=== PATIENT | female | born 2000 | race Caucasian/White ===

== ENCOUNTER 2022-12-13 18:46 | Emergency (ER) | payer BC, SELFPAY ==
--- NOTE | ~2022-12-13 | US_ITS ---
EXAMINATION: US PELVIS LIMITED (BLADDER) CLINICAL INFORMATION: Incomplete bladder emptying. COMPARISON: None available. TECHNIQUE: Real-time imaging of the bladder. Color Doppler exam was used. FINDINGS: BLADDER: Well distended and normal. Bilateral ureteral jets are demonstrated. Prevoid bladder volume is 337 mL. Postvoid bladder volume is 1.3 mL. Other: A thin septation within ovarian cysts in the right ovary measuring 1.9 cm. No further follow-up imaging recommended. Vascular flow in the right ovary. Right ovary measures 3.8 x 2 x 2.7 cm US/US bladder IMPRESSION: Normal ultrasound of the bladder.
--- NOTE | ~2022-12-13 | CT_ITS ---
EXAMINATION: CT ABDOMEN AND PELVIS WITHOUT CONTRAST CLINICAL INFORMATION: Left-sided abdominal pain COMPARISON: None available. TECHNIQUE: Multidetector volumetric imaging was performed from the superior aspect of the liver through the pubic symphysis. Sagittal and coronal reformatted images were obtained on the technologist's workstation. This CT examination was performed using dose optimization techniques as appropriate, variously including the following: *Automated exposure control *Adjustment of mA and/or kV according to patient size (this includes techniques or standardized protocols for targeted exams where dose is matched to indication/reason for exam; i.e. extremities or head) *Use of iterative reconstruction technique DLP: 322 mGy-cm FINDINGS: LUNG BASES: The visualized lung bases are unremarkable. LIVER, GALLBLADDER, AND BILIARY TREE: The liver is normal in size, shape, and attenuation. No focal hepatic lesion or biliary ductal dilatation is present. The gallbladder is unremarkable with no evidence of radiopaque gallstones, gallbladder wall thickening, or obvious pericholecystic inflammatory changes. PANCREAS: Unremarkable. SPLEEN: Unremarkable. ADRENAL GLANDS: Unremarkable. KIDNEYS AND URETERS: The kidneys are normal in size, shape, and attenuation. No hydronephrosis, hydroureter, or calculi seen. No perinephric stranding. BLADDER: Unremarkable. GASTROINTESTINAL TRACT: There is no acute abnormality. There is no bowel wall thickening /edema. There is no bowel obstruction. There is a moderate to large volume of stool in the colon. The appendix is normal . The small bowel loops are unremarkable. The stomach is normal. There is no hiatal hernia. ABDOMINAL WALL: No significant hernia is appreciated. LYMPH NODES: Normal. VASCULAR: Unremarkable. PELVIC VISCERA: Unremarkable. OSSEOUS STRUCTURES: Unremarkable. CT/CT abdomen pelvis wo IV con IMPRESSION: No significant abnormality. Fleischner guidelines were followed.
[2022-12-13 19:18] VITALS: BP 101/66; PULSE 75; RESP 16; TEMP 37.1; O2SAT 99; BMI 20.2
--- NOTE | 2022-12-13 19:20 | ED.GENADULT ---
HPI - General Adult General Chief complaint: Abdominal Pain Stated complaint: lower left side abdominal pain Time Seen by Provider: 12/13/22 20:49 Source: patient, RN notes reviewed and old records reviewed Mode of arrival: ambulatory Limitations: no limitations History of Present Illness HPI narrative: 22-year-old female presents for evaluation of abdominal pain Patient is a type 1 diabetic She reports that she has had left-sided abdominal pain for the last 48 hours. She reports associated nausea without vomiting Denies any constipation or diarrhea Denies any history of abdominal surgeries She reports that she feels ?like when I urinate, I cannot empty my bladder completely. Patient states that her mom had an issue with her bladder a did not let her urinate completely which is concerning for the patient She does not feel like she has a UTI Related Data Allergies Allergy/AdvReac Type Severity Reaction Status Date / Time No Known Allergies Allergy Verified 12/13/22 19:21 Review of Systems Constitutional: Constitutional: Reports as per HPI, Denies chills, Denies fatigue, Denies fever(s) and Denies headache(s) ENT: Denies headache(s) Cardiovascular: Cardiovascular: Denies chest pain and Denies dyspnea Respiratory: Respiratory: Denies cough and Denies dyspnea Gastrointestinal: Gastrointestinal: Reports abdominal pain, Denies constipation, Reports nausea and Denies vomiting Genitourinary: Genitourinary: Denies dysuria and Denies pelvic pain Neurologic: Denies headache(s) and Denies focal weakness Endocrine: Endocrine: Denies fatigue PMFSH Social History Social History Advance Directives: No Advance Directives Information Provided: Yes Physical Exam ED Vital Signs: Vital Signs - 24 hr 12/13/22 19:18 12/13/22 20:24 12/13/22 22:00 Temperature 98.8 F 99.1 F 98.6 F Pulse Rate 75 70 74 Respiratory Rate 16 16 16 Blood Pressure 101/66 108/52 L 93/54 L Pulse Oximetry 99 98 98 Oxygen Delivery Method Room Air Room Air Room Air BMI result Body Mass Index 20.2 Const General: healthy appearing, comfortable, no acute distress, alert and awake Nutritional Appearance: well nourished Orientation/consciousness: patient oriented x3 HENMT Head: Yes normocephalic and Yes atraumatic Eyes Eyelids: Yes eyelids normal Conjunctivae: conjunctivae normal Sclerae: sclerae normal Corneas: corneas normal Pupils: Equal, round and reactive pupils present EOM: EOMs intact bilaterally Neck Neck: Yes full ROM Resp Effort & Inspection: normal respiratory effort, able to speak in complete sentences and not labored GI Inspection: No distended Palpation (GI): Soft to palpation, not firm, Tenderness to palpation present (GI) in the LLQ and in the LUQ; with no rebound tenderness, no guarding and not rigid Auscultation: normoactive bowel sounds Skin General skin exam: no rashes or lesions noted and elasticity normal Neuro General: patient oriented x3 Cranial nerves: Yes Equal, round and reactive pupils present and Yes Bilaterally intact EOM present Cognition (Neuro): normal cognition Extrem Other: Moving all extremities well without any obvious deformities Course Course Course Narrative: This is an RME: Additional HPI, ROS, PE not included below will be deferred to primary provider. 22 year old female presenting from urgent care for concern of appendicitis. Patient has left upper quadrant pain that started two days ago. Patient rates the pain a 2/10 right now. Plan: labs Reevaluation(s) Reevaluation #1: Discussed patient's imaging with her that there are no significant abnormalities. She does have mild stool burden which was also discussed with her. She will be referred to Urology for her feelings of incomplete emptying Time: 23:13 Medical Decision Making Medical Decision Making [facility] Narrative: 22-year-old female with past medical history significant for type 1 diabetes presents for evaluation of abdominal pain. She also reports she feels as though she is incompletely emptying her bladder. Will get an ultrasound of the bladder pre and postvoid. She also has left-sided abdominal tenderness on exam. There is no guarding, no distension. I feel this is most likely related to constipation, less likely diverticulitis or colitis. There is some concern for obstructive uropathy but the patient does not have any blood in her urine. Images pending Differential Diagnosis Differential Diagnoses: The differential diagnosis associated with the presentation includes Constipation Abdominal pain Obstructive uropathy UTI Cystitis Lab Data [facility] Lab Attestation statement: I reviewed the patient's lab results. No significant anemia, a very mild anemia with a hematocrit of 36.6, just below normal. MCV is within normal limits. Electrolytes within normal limits, renal function within normal limits, LFTs including lipase reassuring. Patient is not with a serum hCG is less than 2 12/13/22 19:46 12/13/22 19:46 Labs: Lab Results 12/13/22 12/13/22 12/13/22 Range/Units 19:46 19:46 19:46 WBC 6.0 (4.8-10.8) X10*3/uL RBC 4.00 L (4.20-5.50) X10*6/uL Hgb 12.5 (12.0-16.0) g/dl Hct 36.6 L (37.0-47.0) % MCV 91.5 (80.0-98.0) fL MCH 31.3 (27.0-33.0) pg MCHC 34.2 (31.0-35.0) g/dl RDW 11.8 (11.0-16.0) % Plt Count 268 (160-400) X10*3/uL MPV 9.3 L (9.4-12.3) fL Immature Gran % (Auto) 0.2 (0.0-0.4) % Neut % (Auto) 66.0 (45-73) % Lymph % (Auto) 26.0 (20-40) % [place] % (Auto) 6.5 (2-11) % Eos % (Auto) 0.8 (0-4) % Baso % (Auto) 0.5 (0-2) % Lymph # (Auto) 1.6 (1.2-4.9) X10*3/uL [place] # (Auto) 0.4 (0.1-1.2) X10*3/uL Eos # (Auto) 0.1 (0.0-0.4) X10*3/uL Baso # (Auto) 0.0 (0.0-0.2) X10*3/uL Abs Immat Gran (auto) 0.01 (0.00-0.03) X10*3/uL Absolute Neuts (auto) 3.9 (2.0-8.3) x10*3/uL Absolute Nucleated RBC 0.000 (0.0-0.012) X10*3/uL Nucleated RBC % (auto) 0.0 (0.0-0.2) /100WBC Sodium 138 (135-145) mmol/L Potassium 4.4 (3.3-5.1) mmol/L Chloride 104 (96-108) mmol/L Carbon Dioxide 25 (22-29) mmol/L Anion Gap 13 (12-20) BUN 10 (9-16) mg/dL Creatinine 0.68 (0.5-1.4) mg/dL Estim Creat Clear Calc 88.5 Estimated GFR > 60 Random Glucose 137 H (60-115) mg/dL Calcium 9.9 (8.4-10.2) mg/dL Magnesium 1.8 (1.6-2.6) mg/dL Total Bilirubin 0.6 (0.0-1.0) mg/dL AST 16 (5-31) U/L ALT 10 (0-31) U/L Alkaline Phosphatase 42 (39-117) U/L Total Protein 7.1 (6.5-8.0) g/dL Albumin 4.5 (3.5-5.0) g/dL Lipase 5 L (8-78) U/L Beta HCG, Quant < 2 mIU/mL Urine Color Urine Appearance Urine pH (5.0-9.0) Ur Specific [place] (1.005-1.025) Urine Protein (Neg-Trace) mg/dL Urine Glucose (UA) (Negative) mg/dL Urine Ketones (Negative) mg/dL Urine Blood (Negative) Urine Nitrite (Negative) Ur Leukocyte Esterase (Negative) Urine RBC (0-2) /HPF Urine WBC (0-5) /HPF Ur Squamous Epith Cells (0-2) /HPF Urine Bacteria (None Seen) Hyaline Casts (0-2) /LPF 12/13/22 Range/Units 19:46 WBC (4.8-10.8) X10*3/uL RBC (4.20-5.50) X10*6/uL Hgb (12.0-16.0) g/dl Hct (37.0-47.0) % MCV (80.0-98.0) fL MCH (27.0-33.0) pg MCHC (31.0-35.0) g/dl RDW (11.0-16.0) % Plt Count (160-400) X10*3/uL MPV (9.4-12.3) fL Immature Gran % (Auto) (0.0-0.4) % Neut % (Auto) (45-73) % Lymph % (Auto) (20-40) % [place] % (Auto) (2-11) % Eos % (Auto) (0-4) % Baso % (Auto) (0-2) % Lymph # (Auto) (1.2-4.9) X10*3/uL [place] # (Auto) (0.1-1.2) X10*3/uL Eos # (Auto) (0.0-0.4) X10*3/uL Baso # (Auto) (0.0-0.2) X10*3/uL Abs Immat Gran (auto) (0.00-0.03) X10*3/uL Absolute Neuts (auto) (2.0-8.3) x10*3/uL Absolute Nucleated RBC (0.0-0.012) X10*3/uL Nucleated RBC % (auto) (0.0-0.2) /100WBC Sodium (135-145) mmol/L Potassium (3.3-5.1) mmol/L Chloride (96-108) mmol/L Carbon Dioxide (22-29) mmol/L Anion Gap (12-20) BUN (9-16) mg/dL Creatinine (0.5-1.4) mg/dL Estim Creat Clear Calc Estimated GFR Random Glucose (60-115) mg/dL Calcium (8.4-10.2) mg/dL Magnesium (1.6-2.6) mg/dL Total Bilirubin (0.0-1.0) mg/dL AST (5-31) U/L ALT (0-31) U/L Alkaline Phosphatase (39-117) U/L Total Protein (6.5-8.0) g/dL Albumin (3.5-5.0) g/dL Lipase (8-78) U/L Beta HCG, Quant mIU/mL Urine Color Yellow Urine Appearance Clear Urine pH 7.5 (5.0-9.0) Ur Specific [place] <= 1.005 (1.005-1.025) Urine Protein Negative (Neg-Trace) mg/dL Urine Glucose (UA) Negative (Negative) mg/dL Urine Ketones Negative (Negative) mg/dL Urine Blood Negative (Negative) Urine Nitrite Negative (Negative) Ur Leukocyte Esterase Trace H (Negative) Urine RBC 0-2 (0-2) /HPF Urine WBC 0-5 (0-5) /HPF Ur Squamous Epith Cells 0-2 (0-2) /HPF Urine Bacteria None Seen (None Seen) Hyaline Casts 0-2 (0-2) /LPF Independent Interpretation I performed an independent interpretation of an: CT Scan (Mild stool burden) Radiology Impression Discussion of test interpretation with radiology: I have reviewed the radiologist's reading. (No significant intra-abdominal/pelvic pathology) Radiologist Impression: Bladder ultrasound normal Discharge Plan Discharge Clinical Impression: Abdominal pain Patient Disposition: Home, Self-Care Instructions: Constipation (ED) Additional Instructions: Your workup in the emergency room today was reassuring. Next this includes your blood work, urine sample, CT scan and ultrasound. Your CT scan did appear to show mild constipation. You may try an [id number] laxative or Gas-X Follow-up with urology for your difficulty emptying her bladder. You may follow-up with soledad paz at the number provided Referrals: Ana Tirado MD [Physician] - (Incomplete bladder emptying?)
--- NOTE | 2022-12-13 19:49 | MHC.EDTECH ---
PT URINE SAMPLE COLLECTED AND BLOOD DRAWN AND SENT TO LAB .
[2022-12-13 19:51] LABS: MANUAL DIFF FLAG NO
[2022-12-13 19:53] LABS: Basophils Percent Auto 0.5 % (0-2); Eosinophils Absolute Auto 0.1 X10*3/uL (0.0-0.4); Eosinophils Percent Auto 0.8 % (0-4); Hematocrit 36.6 % (37.0-47.0); Hemoglobin 12.5 g/dl (12.0-16.0); Imm Gran Abs Auto 0.01 X10*3/uL (0.00-0.03); Imm Gran Pct Auto 0.2 % (0.0-0.4); Lymphocytes Absolute Auto 1.6 X10*3/uL (1.2-4.9); Mean Corpuscular HGB Conc 34.2 g/dl (31.0-35.0); Mean Corpuscular Hemoglobin 31.3 pg (27.0-33.0); Mean Corpuscular Volume 91.5 fL (80.0-98.0); Mean Platelet Volume 9.3 fL (9.4-12.3); Monocytes Absolute Auto 0.4 X10*3/uL (0.1-1.2); Monocytes Percent Auto 6.5 % (2-11); Neutrophils Absolute Auto 3.9 x10*3/uL (2.0-8.3); Platelet Count 268 X10*3/uL (160-400); Red Cell Distribution Width 11.8 % (11.0-16.0)
[2022-12-13 19:58] LABS: Appearance Urine Clear; Color Urine Yellow; Glucose Urine UA Negative (Negative); Leukocyte Esterase Urine Trace (Negative); Nitrite Urine Negative (Negative); PH 7.5 (5.0-9.0); Specific Gravity - Urine <= 1.005 (1.005-1.025); UMIC TRIGGER UACC YES; Urine Blood Negative (Negative); Urine Ketones Negative (Negative); Urine Protein Negative (Neg-Trace)
[2022-12-13 20:08] LABS: Alanine Aminotransferase 10 U/L (0-31); Albumin Level 4.5 g/dL (3.5-5.0); Alkaline Phosphatase 42 U/L (39-117); Anion Gap 13 (12-20); Aspartate Amino Transferase 16 U/L (5-31); Bacteria Urine None Seen (None Seen); Bilirubin Total 0.6 mg/dL (0.0-1.0); Blood Urea Nitrogen 10 mg/dL (9-16); Calcium 9.9 mg/dL (8.4-10.2); Carbon Dioxide 25 mmol/L (22-29); Chloride 104 mmol/L (96-108); Creatinine Clr Calc Pharmacy 88.5; Estimated Glomerular Filt Rate > 60; Glucose Random 137 mg/dL (60-115); Hyaline Casts Urine 0-2 /LPF (0-2); Lipase 5 U/L (8-78); Magnesium 1.8 mg/dL (1.6-2.6); Potassium 4.4 mmol/L (3.3-5.1); RBC Urine 0-2 /HPF (0-2); Sodium 138 mmol/L (135-145); Squamous Epithelial Cell Urine 0-2 /HPF (0-2); Total Protein 7.1 g/dL (6.5-8.0); WBC Urine 0-5 /HPF (0-5)
[2022-12-13 20:16] LABS: HCG Quantitative < 2 mIU/mL
[2022-12-13 20:24] VITALS: BP 108/52; PULSE 70; RESP 16; TEMP 37.3; O2SAT 98
--- NOTE | 2022-12-13 20:25 | MHC.EDTECH ---
this pct just assumed care of pt ,vitals sign taken ,warm blanket given ,pt resting quietly in bed .
[2022-12-13 22:00] VITALS: BP 93/54; PULSE 74; RESP 16; TEMP 37; O2SAT 98
== END 2022-12-13 23:20 | disposition home or self-care (01) ==
PROVIDERS: Physician Assistant; Student in an Organized Health Care Education/Training Program; Emergency Provider Emergency Medicine
DX: R10.32 Left lower quadrant pain (principal); E10.9 Type 1 diabetes mellitus without complications; R10.2 Pelvic and perineal pain; R11.0 Nausea; R33.9 Retention of urine, unspecified; Z79.899 Other long term (current) drug therapy
CPT/HCPCS: 36415; 74176; 76857; 80053; 81001; 81003; 83690; 83735; 84702; 85025; 99283; 99284

== ENCOUNTER 2023-07-16 06:33 | Emergency (ER) | payer BC, SELFPAY ==
--- NOTE | ~2023-07-16 | CT_ITS ---
EXAMINATION: CT ABDOMEN AND PELVIS WITH CONTRAST CLINICAL INFORMATION: Severe lower abdominal pain. Bloody diarrhea. COMPARISON: CT abdomen pelvis December 13, 2022 TECHNIQUE: Multidetector volumetric images were obtained from the superior aspect of the liver through the pubic symphysis following administration 85 mL of Omnipaque 350 intravenous contrast. Sagittal and coronal reformatted images were obtained on the technologist's workstation. Today's examination is mildly limited due to motion/respiratory motion artifact. This CT examination was performed using dose optimization techniques as appropriate, variously including the following: *Automated exposure control *Adjustment of mA and/or kV according to patient size (this includes techniques or standardized protocols for targeted exams where dose is matched to indication/reason for exam; i.e. extremities or head) *Use of iterative reconstruction technique DLP: 317 mGy-cm FINDINGS: Visualized lung bases are well aerated. The liver is normal in size. The gallbladder is normal in appearance. The pancreas, spleen and adrenal glands are unremarkable. Symmetrically enhancing kidneys. No hydronephrosis of either kidney. Mild debris-filled stomach. Normal caliber loops of small and large bowel. There is circumferential mucosal thickening centered within the distal descending colon with some minimal adjacent pericolonic stranding, nonspecific. Normal appendix. Normal caliber abdominal aorta. No retroperitoneal lymphadenopathy. The bladder is normal in appearance. Unremarkable CT appearance of the uterus. Trace amount of free pelvic fluid, nonspecific. No inguinal lymphadenopathy. No acute osseous abnormality. CT/CT abdomen pelvis w IV con IMPRESSION: Circumferential mucosal thickening centered within the distal descending colon with some minimal adjacent pericolonic stranding. Findings are nonspecific but most suggestive of colitis, likely infectious or inflammatory. Fleischner guidelines were followed.
[2023-07-16 06:42] VITALS: BP 108/88; PULSE 102; RESP 20; TEMP 36.6; O2SAT 100; BMI 22.5
--- NOTE | 2023-07-16 06:54 | PC.NURSE ---
pt from home, a&ox4, respirations even and unlabored, pt reporting onset of severe abdominal pain with multiple episodes of diarrhea since 2am. pt reports eating large meal prior to diarrhea, pt reports episodes of intermittent nausea. pt reports hx of similar pain. 22G placed in left AC, labs obtained and sent to lab. pt normal sinus on tele 98-99bpm.
[2023-07-16 06:55] LABS: MANUAL DIFF FLAG NO
--- NOTE | 2023-07-16 06:56 | ED.ABDPAIN ---
HPI - Abdominal Pain General Chief Complaint: Abdominal Pain Stated Complaint: abd pain Time Seen by Provider: 07/16/23 06:50 Source: patient Mode of arrival: ambulatory Limitations: no limitations History of Present Illness HPI narrative: 22-year-old female with a history of type 1 diabetes (dx age 11) who presents to the ER for evaluation of acute onset of severe lower abdominal pain that started a few hours ago along with multiple episodes of bloody diarrhea. Patient reports pain came on suddenly around 04:00. She went to the bathroom and had multiple episodes of bloody diarrhea, was unable to get off the toilet for 2.5 hours. She was profusely sweating and having a headache and lightheadedness. She states the pain was an 8 or 9/10, stabbing in nature and across her entire lower abdomen. She denies any chance of , states she just finished her menstrual cycle yesterday. She denies any urinary symptoms. She has been nauseous but has not vomited. She denies any fevers or chills. No known sick contacts. No history of similar presentations. Patient reports she did have a low blood sugar of 30 overnight, drank some juice with resolution. She was symptomatic at the time. She reports a history of severe abdominal cramping prior to her menstrual cycle and was worked up for endometriosis which was negative. MD elicited complaint: abdominal pain Onset (ago): hour(s) Pain Consistency: constant Location: RLQ and LLQ Severity: severe Pain scale (0-10): 9 Quality: cramping and stabbing Radiation: none Migration to: no migration Exacerbating factors: nothing Relieving factors: nothing Associated symptoms: nausea, vomiting and diarrhea Related Data Date of Last Menstrual Period: 07/11/23 Patient : No Previous Rx's Medication Instructions Recorded azithromycin 250 mg tablet See Rx Instructions PO .COMPLEX #6 07/16/23 (Zithromax Z-Justin) tabs ibuprofen 600 mg tablet 600 mg PO Q8H PRN pain #10 tabs 07/16/23 ondansetron 4 mg disintegrating 4 mg PO Q8H PRN nausea and 07/16/23 tablet vomiting #7 tabs oxycodone 5 mg tablet 5 mg PO Q8H PRN severe pain (scale 07/16/23 score 7-10) #5 tabs Allergies Allergy/AdvReac Type Severity Reaction Status Date / Time No Known Allergies Allergy Verified 07/16/23 06:41 Review of Systems Review of Systems Yes all other systems are reviewed and are negative [facility] Past Medical History Date of Last Menstrual Period: 07/11/23 Social History Social History Alcohol intake: current Alcohol intake frequency: a few times a month Smoked in Last 30 Days: No Use of substances other than those prescribed or required for medical reasons: No Advance Directives: No Advance Directives Information Provided: No Patient : No Physical Exam ED Vital Signs: Vital Signs - 24 hr 07/16/23 06:42 07/16/23 10:46 07/16/23 13:25 Temperature 97.9 F 98.3 F Pulse Rate 102 H 81 91 Respiratory Rate 20 16 15 Blood Pressure 108/88 97/64 113/75 Pulse Oximetry 100 99 99 Oxygen Delivery Method Room Air Room Air Room Air BMI result Body Mass Index 22.5 Appearance: Alert. Oriented X3. Patient appears uncomfortable and in pain Head: normocephalic, atraumatic. Eyes: Pupils equal, round and reactive to light. ENT: Pharynx normal. No tonsillar swelling or exudate. Neck: Normal inspection. Neck supple. CVS: Normal heart rate and rhythm. Pulses normal. Respiratory: No respiratory distress. Breath sounds normal. Abdomen: Normal to inspection, tender to palpation throughout the entire lower abdomen with guarding, no rebound. hyperactive bowel sounds Skin: Skin warm and dry. Normal skin color. Normal skin turgor. No rashes. Extremities: No lower extremity edema. No joint swelling. Neuro/psych: Oriented X 3. No motor deficit. No sensory deficit. CN II-XII intact. Normal speech and cognition. Course Reevaluation(s) Reevaluation #1: Pain initially improved after 1st dose of IV morphine however patient is feeling the pain starting to creep back and is getting uncomfortable again. Her vital signs remained stable. Will administer a 2nd dose of morphine and closely monitor her vital signs, respiratory status and pain level. No diarrhea since arrival here. Labs are stable. CT scan is pending. Time: 08:21 Medical Decision Making Medical Decision Making [facility] Narrative: 22 yo type 1 diabetic presents to the ER for evaluation of severe lower abdominal pain associated with bloody diarrhea that started a couple of hours ago. Patient was in significant pain on arrival with lower abdominal tenderness. No urinary symptoms. LMP ended yesterday. IV pain medications, antiemetics and CT scans were ordered for further evaluation. GI panel unable to be obtained, no bowel movements while in the emergency department. Patient's pain was not controlled after 1st dose of IV morphine so she required additional dose of IV pain medication. Her vital signs and mental status remained stable. Pain had improved after this. CT scan was reviewed, showing colitis of the distal sigmoid colon. No leukocytosis. Patient was tolerating oral crackers and dillon taylor in the emergency department. She had some soreness in her abdomen but no recurrent severe pain. She has some recurrent nausea but no vomiting. She was observed for several hours in the ER and would like to try to go home. We discussed empirically treating with antibiotics given there is no stool sample obtained. Differential Diagnosis Differential Diagnoses: The differential diagnosis associated with the presentation includes Viral gastroenteritis, bacterial gastroenteritis, colitis, ischemic colitis Admission/Observation Consideration of admission/observation: Escalation of care including admission/observation considered Lab Data [facility] Lab Attestation statement: I reviewed the patient's lab results. No leukocytosis 07/16/23 06:51 07/16/23 06:51 Labs: Lab Results 07/16/23 07/16/23 Range/Units 06:51 07:53 WBC 7.1 (4.8-10.8) X10*3/uL RBC 4.01 L (4.20-5.50) X10*6/uL Hgb 12.5 (12.0-16.0) g/dl Hct 36.1 L (37.0-47.0) % MCV 90.0 (80.0-98.0) fL MCH 31.2 (27.0-33.0) pg MCHC 34.6 (31.0-35.0) g/dl RDW 11.9 (11.0-16.0) % Plt Count 290 (160-400) X10*3/uL MPV 8.9 L (9.4-12.3) fL Immature Gran % (Auto) 0.4 (0.0-0.4) % Neut % (Auto) 78.8 H (45-73) % Lymph % (Auto) 13.5 L (20-40) % [place] % (Auto) 6.5 (2-11) % Eos % (Auto) 0.4 (0-4) % Baso % (Auto) 0.4 (0-2) % Lymph # (Auto) 1.0 L (1.2-4.9) X10*3/uL [place] # (Auto) 0.5 (0.1-1.2) X10*3/uL Eos # (Auto) 0.0 (0.0-0.4) X10*3/uL Baso # (Auto) 0.0 (0.0-0.2) X10*3/uL Abs Immat Gran (auto) 0.03 (0.00-0.03) X10*3/uL Absolute Neuts (auto) 5.6 (2.0-8.3) x10*3/uL Absolute Nucleated RBC 0.000 (0.0-0.012) X10*3/uL Nucleated RBC % (auto) 0.0 (0.0-0.2) /100WBC Sodium 134 L (135-145) mmol/L Potassium 4.0 (3.3-5.1) mmol/L Chloride 100 (96-108) mmol/L Carbon Dioxide 23 (22-29) mmol/L Anion Gap 15 (12-20) BUN 14 (9-16) mg/dL Creatinine 0.78 (0.5-1.4) mg/dL Estim Creat Clear Calc 77.1 Estimated GFR > 60 Random Glucose 226 H (60-115) mg/dL Calcium 9.3 D (8.4-10.2) mg/dL Total Bilirubin 0.2 (0.0-1.0) mg/dL AST 14 (5-31) U/L ALT 12 (0-31) U/L Alkaline Phosphatase 47 (39-117) U/L Total Protein 7.0 (6.5-8.0) g/dL Albumin 4.3 (3.5-5.0) g/dL Beta HCG, Quant < 2 mIU/mL Urine Color Yellow Urine Appearance Clear Urine pH 6.0 (5.0-9.0) Ur Specific [place] 1.010 (1.005-1.025) Urine Protein Negative (Neg-Trace) mg/dL Urine Glucose (UA) 500 H (Negative) mg/dL Urine Ketones Negative (Negative) mg/dL Urine Blood Negative (Negative) Urine Nitrite Negative (Negative) Ur Leukocyte Esterase Negative (Negative) Independent Interpretation I performed an independent interpretation of an: CT Scan Interpretation: No free air, no evidence of obstruction, no visible abscess, agree with radiologist's read Radiology Impression Discussion of test interpretation with radiology: I have reviewed the radiologist's reading. Radiologist Impression: CT/CT abdomen pelvis w IV con IMPRESSION: Circumferential mucosal thickening centered within the distal descending colon with some minimal adjacent pericolonic stranding. Findings are nonspecific but most suggestive of colitis, likely infectious or inflammatory. Independent Historian Clinical information obtained from an independent historian. History obtained from or confirmed by: Spouse External Record Review External record reviewed: Prior outpatient labs and Prior outpatient radiology Prescription Management I considered prescription management with: Pain Medication and Antibiotic Medications Administered Discontinued Medications Generic Name Dose Route Start Last Admin Trade Name Freq PRN Reason Stop Dose Admin Iohexol 85 ml 07/16/23 08:26 07/16/23 08:27 Iohexol 350 Mg/Ml 100 Ml Infus..Btl IV 07/16/23 08:27 85 ml ONCE ONE Administration Morphine Sulfate 4 mg 07/16/23 07:03 07/16/23 07:15 Morphine Sulfate 4 Mg/Ml Cartridge IVPUSH 07/16/23 07:04 4 mg ONCE ONE Administration Protocol Morphine Sulfate 4 mg 07/16/23 08:14 07/16/23 08:19 Morphine Sulfate 4 Mg/Ml Cartridge IVPUSH 07/16/23 08:15 4 mg ONCE ONE Administration Protocol Ondansetron HCl 4 mg 07/16/23 07:03 07/16/23 07:15 Ondansetron Hcl 4 Mg/2 Ml Vial IVPUSH 07/16/23 07:04 4 mg ONCE ONE Administration Ondansetron HCl 4 mg 07/16/23 13:15 07/16/23 13:30 Ondansetron Hcl 4 Mg/2 Ml Vial IVPUSH 07/16/23 13:16 4 mg ONCE ONE Administration Critical Care Time Critical Care Time Critical Care Time: Yes Total Critical Care Time: 36 Attestation: I have personally provided critical care time exclusive of time spent on separately billable procedures. Time includes review of lab data, radiology results, discussion with consultants, and monitoring for potential decompensation. Intervention performed as documented. Discharge Plan Discharge Clinical Impression: Colitis Patient Disposition: Home, Self-Care Instructions: Colitis (ED) Additional Instructions: Your CT scan showed colitis Take the prescribed medications as directed for this Rest and drink plenty of fluids. Stick to a bland diet for the next 48-72 hours Prescriptions: New azithromycin [Zithromax Z-Justin] 250 mg tablet See Rx Instructions PO .COMPLEX Qty: 6 0RF Rx Instructions: take 500 mg today (day 1), then 250 mg for 4 days (days 2-5) ibuprofen 600 mg tablet 600 mg PO Q8H PRN (Reason: pain) Qty: 10 0RF ondansetron 4 mg tablet,disintegrating 4 mg PO Q8H PRN (Reason: nausea and vomiting) Qty: 7 0RF oxycodone 5 mg tablet 5 mg PO Q8H PRN (Reason: severe pain (scale score 7-10)) Qty: 5 0RF Rx Instructions: Partial Fill upon patient request. Referrals: [facility]Provider Group] (colitis) Tatiana Blank FNP [Primary Care Provider] - Nino Garibay MD [Physician] -
[2023-07-16 06:58] LABS: Basophils Percent Auto 0.4 % (0-2); Eosinophils Percent Auto 0.4 % (0-4); Hematocrit 36.1 % (37.0-47.0); Hemoglobin 12.5 g/dl (12.0-16.0); Imm Gran Abs Auto 0.03 X10*3/uL (0.00-0.03); Imm Gran Pct Auto 0.4 % (0.0-0.4); Lymphocytes Percent Auto 13.5 % (20-40); Mean Corpuscular HGB Conc 34.6 g/dl (31.0-35.0); Mean Corpuscular Hemoglobin 31.2 pg (27.0-33.0); Mean Platelet Volume 8.9 fL (9.4-12.3); Monocytes Absolute Auto 0.5 X10*3/uL (0.1-1.2); Monocytes Percent Auto 6.5 % (2-11); Neutrophils Absolute Auto 5.6 x10*3/uL (2.0-8.3); Neutrophils Percent Auto 78.8 % (45-73); Platelet Count 290 X10*3/uL (160-400); Red Blood Count 4.01 X10*6/uL (4.20-5.50); Red Cell Distribution Width 11.9 % (11.0-16.0); White Blood Count 7.1 X10*3/uL (4.8-10.8)
[2023-07-16] MEDS: Morphine Sulfate 4 MG/ML CARTRIDGE IVPUSH ×2 (07:15→08:19)
[2023-07-16] MEDS: ondansetron HCL 4 MG/2 ML VIAL IVPUSH ×2 (07:15→13:30)
[2023-07-16 07:19] LABS: Alanine Aminotransferase 12 U/L (0-31); Albumin Level 4.3 g/dL (3.5-5.0); Alkaline Phosphatase 47 U/L (39-117); Anion Gap 15 (12-20); Aspartate Amino Transferase 14 U/L (5-31); Bilirubin Total 0.2 mg/dL (0.0-1.0); Blood Urea Nitrogen 14 mg/dL (9-16); Calcium 9.3 mg/dL (8.4-10.2); Carbon Dioxide 23 mmol/L (22-29); Chloride 100 mmol/L (96-108); Creatinine Clr Calc Pharmacy 77.1; Estimated Glomerular Filt Rate > 60; Glucose Random 226 mg/dL (60-115); Sodium 134 mmol/L (135-145)
--- NOTE | 2023-07-16 07:25 | PC.NURSE ---
this RN resumed care of pt at this time. a&ox4. vss and up to date. nsr on the interactive graphic designer. new 20gIV placed in the right AC so CT can be obtained. medication administered per provider order. effectiveness pending. pt aware of urine/stool sample needed so collections can be made/sent to lab. no sob/wob noted. respirations even and unlabored. partner bedside for support. plan of care ongoing. call kennedy placed within reach.
[2023-07-16 07:59] LABS: Appearance Urine Clear; Color Urine Yellow; Glucose Urine UA 500 mg/dL (Negative); Leukocyte Esterase Urine Negative (Negative); Nitrite Urine Negative (Negative); Urine Blood Negative (Negative); Urine Ketones Negative (Negative); Urine Protein Negative (Neg-Trace)
[2023-07-16 08:04] LABS: HCG Quantitative < 2 mIU/mL
--- NOTE | 2023-07-16 08:21 | PC.NURSE ---
pt verbalizing no change in pain level despite medication administration. medication administered per provider order. effectiveness pending. pt to CT at this time. plan of care ongoing.
[2023-07-16] MEDS: iohexoL 350 MG/ML 100 ML INFUS..BTL 85 ML IV (08:27)
[2023-07-16 10:46] VITALS: BP 97/64; PULSE 81; RESP 16; TEMP 36.8; O2SAT 99
[2023-07-16 13:25] VITALS: BP 113/75; PULSE 91; RESP 15; O2SAT 99
--- NOTE | 2023-07-16 13:30 | PC.NURSE ---
pt verbalizing increase in abd pain/nausea - pt medicated per provider order. effectiveness pending.
[2023-07-16 14:55] VITALS: BP 113/75; PULSE 91; RESP 15; TEMP 36.8; O2SAT 99
== END 2023-07-16 15:00 | disposition home or self-care (01) ==
PROVIDERS: Physician Assistant; Emergency Provider Student in an Organized Health Care Education/Training Program; PCP Nurse Practitioner Family
DX: K52.9 Noninfective gastroenteritis and colitis, unspecified (principal); E10.9 Type 1 diabetes mellitus without complications
CPT/HCPCS: 36415; 74177; 80053; 81003; 84702; 85025; 96374; 96375; 96376; 99284; J2270; J2405; Q9967

== ENCOUNTER 2023-07-18 20:44 | Emergency (ER) | payer BC, SELFPAY ==
--- NOTE | ~2023-07-18 | XR_ITS ---
EXAMINATION: XR ABDOMEN KUB CLINICAL INDICATION: Pain. COMPARISON: None available. TECHNIQUE: AP view of the abdomen. FINDINGS: The bowel gas pattern is normal with no evidence of ileus or obstruction. There is retained stool throughout. No unusual soft tissue calcifications are noted. The bones are unremarkable. XR/XR KUB IMPRESSION: Nonobstructive bowel gas pattern. Retained stool throughout.
[2023-07-18 21:05] VITALS: BP 103/63; PULSE 93; RESP 18; TEMP 36.8; O2SAT 98; BMI 20.2
[2023-07-18 21:25] LABS: MANUAL DIFF FLAG NO
[2023-07-18 21:27] LABS: Basophils Percent Auto 0.7 % (0-2); Eosinophils Absolute Auto 0.1 X10*3/uL (0.0-0.4); Eosinophils Percent Auto 1.1 % (0-4); Hemoglobin 12.4 g/dl (12.0-16.0); Imm Gran Abs Auto 0.01 X10*3/uL (0.00-0.03); Imm Gran Pct Auto 0.2 % (0.0-0.4); Lymphocytes Absolute Auto 1.3 X10*3/uL (1.2-4.9); Lymphocytes Percent Auto 28.5 % (20-40); Mean Corpuscular HGB Conc 34.4 g/dl (31.0-35.0); Mean Corpuscular Hemoglobin 31.5 pg (27.0-33.0); Mean Corpuscular Volume 91.4 fL (80.0-98.0); Mean Platelet Volume 8.9 fL (9.4-12.3); Monocytes Absolute Auto 0.4 X10*3/uL (0.1-1.2); Monocytes Percent Auto 7.9 % (2-11); Neutrophils Absolute Auto 2.7 x10*3/uL (2.0-8.3); Neutrophils Percent Auto 61.6 % (45-73); Platelet Count 259 X10*3/uL (160-400); Red Blood Count 3.94 X10*6/uL (4.20-5.50); White Blood Count 4.4 X10*3/uL (4.8-10.8)
[2023-07-18 21:30] LABS: Appearance Urine Clear; Color Urine Yellow; Glucose Urine UA Negative (Negative); Leukocyte Esterase Urine Negative (Negative); Nitrite Urine Negative (Negative); Urine Blood Negative (Negative); Urine Ketones Negative (Negative); Urine Protein Negative (Neg-Trace)
[2023-07-18 21:47] LABS: Alanine Aminotransferase 10 U/L (0-31); Albumin Level 4.4 g/dL (3.5-5.0); Alkaline Phosphatase 43 U/L (39-117); Anion Gap 11 (12-20); Aspartate Amino Transferase 14 U/L (5-31); Bilirubin Total 0.2 mg/dL (0.0-1.0); Blood Urea Nitrogen 12 mg/dL (9-16); Calcium 9.3 mg/dL (8.4-10.2); Carbon Dioxide 30 mmol/L (22-29); Chloride 102 mmol/L (96-108); Creatinine Clr Calc Pharmacy 75.2; Estimated Glomerular Filt Rate > 60; Glucose Random 175 mg/dL (60-115); HCG Quantitative < 2 mIU/mL; Potassium 4.2 mmol/L (3.3-5.1); Sodium 139 mmol/L (135-145)
[2023-07-19 02:01] VITALS: BP 99/67; PULSE 85; RESP 18; TEMP 36.9; O2SAT 99
[2023-07-19 03:54] VITALS: BP 99/63; PULSE 79; RESP 16; TEMP 36.9; O2SAT 98
--- NOTE | 2023-07-19 05:16 | ED.ABDPAIN ---
HPI - Abdominal Pain General Chief Complaint: Abdominal Pain Stated Complaint: colitis Time Seen by Provider: 07/19/23 05:09 Source: patient Mode of arrival: ambulatory Limitations: no limitations History of Present Illness HPI narrative: Patient comes to the emergency room complaining of constipation. Patient states that on July 15, she was diagnosed with colitis. Patient was discharged home. Patient states that she did not take antibiotics because she did not want to start taking antibiotics without a clear diagnosis of what we were treating because she is prone to side effects with antibiotics. Patient states that the diarrhea stopped by itself and now has constipation. Patient complaining of left lower quadrant pain only when she tries to have a bowel movement. Patient denies any recent nausea vomiting or diarrhea. No fever chills. Related Data Previous Rx's Medication Instructions Recorded azithromycin 250 mg tablet See Rx Instructions PO .COMPLEX #6 07/16/23 (Zithromax Z-Justin) tabs ibuprofen 600 mg tablet 600 mg PO Q8H PRN pain #10 tabs 07/16/23 ondansetron 4 mg disintegrating 4 mg PO Q8H PRN nausea and 07/16/23 tablet vomiting #7 tabs oxycodone 5 mg tablet 5 mg PO Q8H PRN severe pain (scale 07/16/23 score 7-10) #5 tabs polyethylene glycol 3350 17 17 g PO BID #119 grams 07/19/23 gram/dose oral powder (Miralax) Allergies Allergy/AdvReac Type Severity Reaction Status Date / Time No Known Allergies Allergy Verified 07/18/23 21:04 Review of Systems Review of Systems Constitutional : No Weight loss, No Fever, No Chills, No Night Sweats, No Fatigue, No Malaise ENT/Mouth : No Hearing loss, No Ear Pain, No Nasal Congestion, No Sinus Pain, No Hoarseness, No sore throat, No Rhinorrhea, No Swallowing Difficulty Eyes: No Eye Pain, No Swelling, No Redness, No Foreign Body, No Discharge, No Vision Changes Cardiovascular : No Chest Pain, No SOB, No Dyspnea on Exertion, No Orthopnea, No Edema, No Palpitations Respiratory : No Cough, No Sputum, No Wheezing, No Smoke Exposure, No Dyspnea Gastrointestinal : No Nausea, No Vomiting, No Diarrhea, complaining of constipation of left lower quadrant pain with abdominal straining Genitourinary : no irregular bleeding, No Dysuria, No Urinary Frequency, No Hematuria, No Urinary Incontinence, No Urgency, No Flank Pain, No Urinary Flow Changes, No Hesitancy Musculoskeletal : No joint pain, No Myalgias, No Joint Swelling Skin : No Skin Lesions, No rash Neuro : No Weakness, No Numbness, No Paresthesias, No Loss of Consciousness, No Dizziness, No Headache Psych : No Anxiety/Panic, No Depression, No SI/HI/AH/VH, No Social Issues, Heme/Lymph: No Bruising, No Bleeding,No Lymphadenopathy Endocrine : No Polyuria, No Polydipsia, No Temperature Intolerance [facility] Social History Social History Alcohol intake: current Alcohol intake frequency: a few times a month Smoked in Last 30 Days: No Advance Directives: No Advance Directives Information Provided: Yes Physical Exam ED Vital Signs: Vital Signs - 24 hr 07/18/23 21:05 07/19/23 02:01 07/19/23 03:54 Temperature 98.2 F 98.4 F 98.5 F Pulse Rate 93 85 79 Respiratory Rate 18 18 16 Blood Pressure 103/63 99/67 99/63 Pulse Oximetry 98 99 98 Oxygen Delivery Method Room Air Room Air Room Air BMI result Body Mass Index 20.2 Const Other: Appearance: Alert. Oriented X3. No acute distress. Well-appearing Eyes: Pupils equal, round and reactive to light. ENT: Pharynx normal. Neck: Normal inspection. Neck supple. No lymph nodes noted. No crepitus CVS: Normal heart rate and rhythm. Pulses normal. Normal S1 and S2 Respiratory: No respiratory distress. Breath sounds normal. No Wheezing. No rales Abdomen: Soft and nontender. No rigidity. No distention. Skin: Skin warm and dry. Normal skin color. Normal skin turgor. Extremities: No lower extremity edema. No Lacerations. No Rash Neuro: Oriented X 3. No motor deficit. No sensory deficit. Moving all extremities. No slurred speech. CN 2 through 12 grossly intact Psych: calm, cooperative, normal affect Medical Decision Making Medical Decision Making MDM Narrative: -my interpretation of labs: White blood cell count 4.4, hematology within normal limits/at baseline. Chemistry no significant electrolyte abnormality, LFTs normal, hCG negative -physical exam is unremarkable, no pain to palpation. -patient states that she is afraid to have a bowel movement because when she strains she gets pain. -KUB pending to see how by the constipation is. -patient states that she has not had any diarrhea at all, at this time, antibiotics no longer recommended. -I reviewed patient's medical records from previous visit, CT scan showed circumferential mucosal thickening centered within the distal descending colon My interpretation KUB: Constipation, no air-fluid levels -patient instructed to take MiraLax Differential Diagnosis Differential Diagnoses: The differential diagnosis associated with the presentation includes (Constipation, colitis) Lab Data MDM Lab Attestation statement: I reviewed the patient's lab results. 07/18/23 21:20 07/18/23 21:20 Labs: Lab Results 07/18/23 Range/Units 21:20 WBC 4.4 L (4.8-10.8) X10*3/uL RBC 3.94 L (4.20-5.50) X10*6/uL Hgb 12.4 (12.0-16.0) g/dl Hct 36.0 L (37.0-47.0) % MCV 91.4 (80.0-98.0) fL MCH 31.5 (27.0-33.0) pg MCHC 34.4 (31.0-35.0) g/dl RDW 12.0 (11.0-16.0) % Plt Count 259 (160-400) X10*3/uL MPV 8.9 L (9.4-12.3) fL Immature Gran % (Auto) 0.2 (0.0-0.4) % Neut % (Auto) 61.6 (45-73) % Lymph % (Auto) 28.5 (20-40) % [place] % (Auto) 7.9 (2-11) % Eos % (Auto) 1.1 (0-4) % Baso % (Auto) 0.7 (0-2) % Lymph # (Auto) 1.3 (1.2-4.9) X10*3/uL [place] # (Auto) 0.4 (0.1-1.2) X10*3/uL Eos # (Auto) 0.1 (0.0-0.4) X10*3/uL Baso # (Auto) 0.0 (0.0-0.2) X10*3/uL Abs Immat Gran (auto) 0.01 (0.00-0.03) X10*3/uL Absolute Neuts (auto) 2.7 (2.0-8.3) x10*3/uL Absolute Nucleated RBC 0.000 (0.0-0.012) X10*3/uL Nucleated RBC % (auto) 0.0 (0.0-0.2) /100WBC Sodium 139 (135-145) mmol/L Potassium 4.2 (3.3-5.1) mmol/L Chloride 102 (96-108) mmol/L Carbon Dioxide 30 H (22-29) mmol/L Anion Gap 11 L (12-20) BUN 12 (9-16) mg/dL Creatinine 0.80 (0.5-1.4) mg/dL Estim Creat Clear Calc 75.2 Estimated GFR > 60 Random Glucose 175 H (60-115) mg/dL Calcium 9.3 (8.4-10.2) mg/dL Total Bilirubin 0.2 (0.0-1.0) mg/dL AST 14 (5-31) U/L ALT 10 (0-31) U/L Alkaline Phosphatase 43 (39-117) U/L Total Protein 7.0 (6.5-8.0) g/dL Albumin 4.4 (3.5-5.0) g/dL Lipase 5 L (8-78) U/L Beta HCG, Quant < 2 mIU/mL Urine Color Yellow Urine Appearance Clear Urine pH 6.0 (5.0-9.0) Ur Specific [place] 1.010 (1.005-1.025) Urine Protein Negative (Neg-Trace) mg/dL Urine Glucose (UA) Negative (Negative) mg/dL Urine Ketones Negative (Negative) mg/dL Urine Blood Negative (Negative) Urine Nitrite Negative (Negative) Ur Leukocyte Esterase Negative (Negative) Independent Interpretation I performed an independent interpretation of an: CT Scan Radiology Impression Discussion of test interpretation with radiology: I have reviewed the radiologist's reading. Radiologist Impression: The bowel gas pattern is normal with no evidence of ileus or obstruction. There is retained stool throughout. No unusual soft tissue calcifications are noted. The bones are unremarkable. XR/XR KUB IMPRESSION: Nonobstructive bowel gas pattern. Retained stool throughout. Discharge Plan Discharge Clinical Impression: Constipation Patient Disposition: Home, Self-Care Instructions: Constipation (ED) Additional Instructions: Please follow-up with your primary care physician tomorrow. If you have any worsening or new symptoms, please return to the emergency room or call 911 Prescriptions: New polyethylene glycol 3350 [Miralax] 17 gram/dose powder 17 g PO BID Qty: 119 0RF No Action azithromycin [Zithromax Z-Justin] 250 mg tablet See Rx Instructions PO .COMPLEX Qty: 6 0RF Rx Instructions: take 500 mg today (day 1), then 250 mg for 4 days (days 2-5) ibuprofen 600 mg tablet 600 mg PO Q8H PRN (Reason: pain) Qty: 10 0RF ondansetron 4 mg tablet,disintegrating 4 mg PO Q8H PRN (Reason: nausea and vomiting) Qty: 7 0RF oxycodone 5 mg tablet 5 mg PO Q8H PRN (Reason: severe pain (scale score 7-10)) Qty: 5 0RF Rx Instructions: Partial Fill upon patient request.
[2023-07-19 05:22] LABS: Lipase 5 U/L (8-78)
[2023-07-19 06:07] VITALS: BP 99/63; PULSE 79; RESP 16; TEMP 36.9; O2SAT 98
== END 2023-07-19 06:11 | disposition home or self-care (01) ==
PROVIDERS: Emergency Provider Emergency Medicine; PCP Nurse Practitioner Family
DX: K59.00 Constipation, unspecified (principal); K52.9 Noninfective gastroenteritis and colitis, unspecified
CPT/HCPCS: 36415; 74018; 80053; 81003; 83690; 84702; 85025; 99283; 99284

== ENCOUNTER 2023-09-25 14:05 | Emergency (ER) | payer BC, SELFPAY ==
[2023-09-25 14:40] VITALS: BP 118/72; PULSE 90; RESP 16; TEMP 36.7; O2SAT 99; BMI 20.2
[2023-09-25 16:00] VITALS: BP 96/90; PULSE 82; TEMP 37; O2SAT 100
--- NOTE | 2023-09-25 17:32 | ED_ITS ---
HPI - Skin/Abscess/Foreign Bdy General Chief complaint: Skin/Abscess/Foreign Body Stated complaint: Facial wounds Time Seen by Provider: 09/25/23 16:36 Source: patient Mode of arrival: ambulatory Limitations: no limitations History of Present Illness HPI narrative: patient a 22-year-old presents to the emergency department for evaluation. Patient provides me with a notebook where she has a list of written concerns to address today. Reports that she has very bad cystic hormonal she is following with Dermatology has recently prescribed tone addition to clindamycin lotion she taking these medications accordingly, but she continues to progression of the scabbed cystic lesions to her face become quite painful. She reports increased pain especially on her chin with talking. She also reports a history autism, OCD, body focused repetitive disorders, dermatillomania, type 1 diabetes with good control of her blood sugars. she reports in the past that she has benefitted from Accutane, but has not taken this in approximately 1-1.5 years as she was unable to continue receiving her oral contraceptives. She states that she was followed by agricultural engineering technician office but has not seen them in approximately 2 years. she reports that she feels like I might want to go inpatient psych , she reports that in the past she has benefitted from inpatient psych admission as this allows time for her skin to heal and she does not pick skin, when asked whether she is experiencing suicidal or homicidal ideations she admits to having chronic intrusive thoughts but denies any worsening of these thoughts. Related Data Home Medications ?Medication ?Instructions ?Recorded ?Confirmed fluoxetine 40 mg capsule 40 mg PO DAILY 09/25/23 09/25/23 insulin glargine 100 unit/mL 15 unit subcut BEDTIME 09/25/23 09/25/23 subcutaneous solution (Lantus U-100 Insulin) Previous Rx's ?Medication ?Instructions ?Recorded doxycycline hyclate 100 mg tablet 100 mg PO BID #14 tabs 09/25/23 Allergies Allergy/AdvReac Type Severity Reaction Status Date / Time insulin lispro Allergy Itching Verified 09/25/23 21:26 Review of Systems 2 Review of Systems: Yes all other systems are reviewed and are negative [facility] Past Medical History Attestation statement: The following information was validated with the patient. Source: old records reviewed Social History Social History Alcohol intake: current Alcohol intake frequency: a few times a month Advance Directives: No Advance Directives Information Provided: No Do you have a plan to hurt others: No Plan Physical Exam 2 Vital Signs: Vital Signs: Last Vital Signs Temp 98.6 F 09/25/23 16:00 Pulse 82 09/25/23 16:00 Resp 16 09/25/23 14:40 BP 96/90 H 09/25/23 16:00 Pulse Ox 100 09/25/23 16:00 O2 Del Method Room Air 09/25/23 16:00 BMI result Body Mass Index 20.2 Appearance: Alert.?Oriented to person, place and time. No acute distress.?Normal affect. Neck: Normal inspection.? Neck supple.?? CVS: Heart sounds normal. Normal heart rate and rhythm.? Pulses normal.?? Respiratory: No respiratory distress.? Lung sounds clear to auscultation bilaterally?? Skin: Skin warm and dry.? Normal skin color.? Scabbed lesions all over the face primarily to the midline with honey-colored crusting, no obvious abscesses? Extremities: No lower extremity edema.? Neuro: Moves all extremities spontaneously. Sensation intact bilaterally. CN II- XII intact. No focal neuro deficits. Ambulates with normal steady gait. Course Reevaluation(s) Reevaluation #1: care team met patient, at this time they feel that she meets inpatient care. Plan to obtain basic, patient signed out to Dioyn STARR pending labs Reevaluation #2: Received in sign-out at change of shift pending labs, labs show no significant abnormalities requiring intervention. Patient is medically cleared for care team evaluation Time: 21:10 Reevaluation #3: The patient is requesting discharge at this time. When I went to evaluate the patient she did request discharge. She states it is primarily down to the fact that her sliding scale insulin is not the same 1 that is used in the hospital. She apparently has an allergy to insulin lispro that causes itching. She was requesting 8 units of her home insulin, but hospital policy dictates for her point of care glucose she should receive 4 units of insulin. The patient that due to her OCD state, she is not comfortable receiving 4 units of insulin and would prefer to go home. She is not suicidal but she states she believes she will continue picking at her skin. She was given referrals by the care team for outpatient follow-up Time: 23:26 Medications Administered Generic Name Dose Route Start Last Admin Trade Name Freq PRN Reason Stop Dose Admin Doxycycline Monohydrate 100 mg 09/25/23 21:00 09/25/23 19:49 Doxycycline Monohydrate 100 Mg Capsule PO 10/02/23 09:01 100 mg BID SONAM Administration Insulin Glargine 15 unit 09/25/23 21:15 09/25/23 21:57 Insulin Glargine,Hum.Rec.Anlog 100 Unit/Ml 10 Ml Vial SUBCUT 15 unit BEDTIME SONAM Administration Discontinued Medications Generic Name Dose Route Start Last Admin Trade Name Freq PRN Reason Stop Dose Admin Fluconazole 150 mg 09/25/23 18:41 09/25/23 19:49 Fluconazole 150 Mg Tablet PO 09/25/23 18:42 150 mg ONCE ONE Administration Medical Decision Making Medical Decision Making [facility] Narrative: patient is a 22-year-old female with past medical history of acne, autism, antiety, OCD, body focused repetitive disorders, dermatillomania, type 1 diabetes who presents to the emergency department with a few complaints as per HPI. We discussed at length options for OCP prescription including contacting her prior agricultural engineering technician office and/ or a new agricultural engineering technician office, [facility] I will also provide her with contact information for the agricultural engineering technician office that is associated with this hospital. She was very thankful for the information. 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 There does appear to be Superimposed infection/ impetigo of the lesions to her face, no significant surrounding erythema, she has been applying topical clindamycin without much improvement, she may benefit at this point with a course of oral antibiotics, we discussed the use of doxycycline, in the past this has caused her to develop a yeast infections we will also use Diflucan. Differential Diagnosis Differential Diagnoses: The differential diagnosis associated with the presentation includes ( See narrative) Admission/Observation Consideration of admission/observation: Escalation of care including admission/observation considered ( physician observation so that bed search can ensue) Consult Healthcare Provider Management of the patient was discussed with: Behavioral Health Provider ( evaluated by care team, inpatient bed search) Lab Data 09/25/23 19:02 09/25/23 19:02 Labs: Lab Results 09/25/23 09/25/23 09/25/23 Range/Units 19:02 19:44 21:22 WBC 5.4 (4.8-10.8) X10*3/uL RBC 4.07 L (4.20-5.50) X10*6/uL Hgb 12.8 (12.0-16.0) g/dl Hct 37.1 (37.0-47.0) % MCV 91.2 (80.0-98.0) fL MCH 31.4 (27.0-33.0) pg MCHC 34.5 (31.0-35.0) g/dl RDW 11.6 (11.0-16.0) % Plt Count 262 (160-400) X10*3/uL MPV 9.1 L (9.4-12.3) fL Immature Gran % (Auto) 0.2 (0.0-0.4) % Neut % (Auto) 69.6 (45-73) % Lymph % (Auto) 23.8 (20-40) % [place] % (Auto) 5.2 (2-11) % Eos % (Auto) 0.6 (0-4) % Baso % (Auto) 0.6 (0-2) % Lymph # (Auto) 1.3 (1.2-4.9) X10*3/uL [place] # (Auto) 0.3 (0.1-1.2) X10*3/uL Eos # (Auto) 0.0 (0.0-0.4) X10*3/uL Baso # (Auto) 0.0 (0.0-0.2) X10*3/uL Abs Immat Gran (auto) 0.01 (0.00-0.03) X10*3/uL Absolute Neuts (auto) 3.8 (2.0-8.3) x10*3/uL Absolute Nucleated RBC 0.000 (0.0-0.012) X10*3/uL Nucleated RBC % (auto) 0.0 (0.0-0.2) /100WBC Sodium 139 (135-145) mmol/L Potassium 3.7 (3.3-5.1) mmol/L Chloride 103 (96-108) mmol/L Carbon Dioxide 28 (22-29) mmol/L Anion Gap 12 (12-20) BUN 13 (9-16) mg/dL Creatinine 0.68 (0.5-1.4) mg/dL Estim Creat Clear Calc 88.5 Estimated GFR > 60 POC Glucose 157 H 187 H (60-115) mg/dL Random Glucose 137 H (60-115) mg/dL Calcium 9.4 (8.4-10.2) mg/dL Total Bilirubin 0.3 (0.0-1.0) mg/dL AST 14 (5-31) U/L ALT 11 (0-31) U/L Alkaline Phosphatase 51 (39-117) U/L Total Protein 7.4 (6.5-8.0) g/dL Albumin 4.5 (3.5-5.0) g/dL Urine Color Yellow Urine Appearance Clear Urine pH 7.0 (5.0-9.0) Ur Specific [place] 1.010 (1.005-1.025) Urine Protein Negative (Neg-Trace) mg/dL Urine Glucose (UA) Negative (Negative) mg/dL Urine Ketones 15 (Negative) mg/dL Urine Blood Negative (Negative) Urine Nitrite Negative (Negative) Ur Leukocyte Esterase Negative (Negative) Urine Test NEGATIVE (NEGATIVE) Urine Opiates Screen Not Detected (Not Detect) Ur Buprenorphine Scrn Not Detected (Not Detect) ng/mL Ur Oxycodone Screen Not Detected (Not Detect) ng/mL Urine Methadone Screen Not Detected (Not Detect) ng/mL Urine Fentanyl Screen Not Detected (Not Detect) Ur Barbiturates Screen Not Detected (Not Detect) Ur Phencyclidine Scrn Not Detected (Not Detect) Ur Amphetamines Screen Not Detected (Not Detect) U Benzodiazepines Scrn Not Detected (Not Detect) Urine Cocaine Screen Not Detected (Not Detect) U Marijuana (THC) Screen Not Detected (Not Detect) Ethyl Alcohol < 10 mg/dL 09/25/23 Range/Units 22:30 WBC (4.8-10.8) X10*3/uL RBC (4.20-5.50) X10*6/uL Hgb (12.0-16.0) g/dl Hct (37.0-47.0) % MCV (80.0-98.0) fL MCH (27.0-33.0) pg MCHC (31.0-35.0) g/dl RDW (11.0-16.0) % Plt Count (160-400) X10*3/uL MPV (9.4-12.3) fL Immature Gran % (Auto) (0.0-0.4) % Neut % (Auto) (45-73) % Lymph % (Auto) (20-40) % [place] % (Auto) (2-11) % Eos % (Auto) (0-4) % Baso % (Auto) (0-2) % Lymph # (Auto) (1.2-4.9) X10*3/uL [place] # (Auto) (0.1-1.2) X10*3/uL Eos # (Auto) (0.0-0.4) X10*3/uL Baso # (Auto) (0.0-0.2) X10*3/uL Abs Immat Gran (auto) (0.00-0.03) X10*3/uL Absolute Neuts (auto) (2.0-8.3) x10*3/uL Absolute Nucleated RBC (0.0-0.012) X10*3/uL Nucleated RBC % (auto) (0.0-0.2) /100WBC Sodium (135-145) mmol/L Potassium (3.3-5.1) mmol/L Chloride (96-108) mmol/L Carbon Dioxide (22-29) mmol/L Anion Gap (12-20) BUN (9-16) mg/dL Creatinine (0.5-1.4) mg/dL Estim Creat Clear Calc Estimated GFR POC Glucose 207 H (60-115) mg/dL Random Glucose (60-115) mg/dL Calcium (8.4-10.2) mg/dL Total Bilirubin (0.0-1.0) mg/dL AST (5-31) U/L ALT (0-31) U/L Alkaline Phosphatase (39-117) U/L Total Protein (6.5-8.0) g/dL Albumin (3.5-5.0) g/dL Urine Color Urine Appearance Urine pH (5.0-9.0) Ur Specific [place] (1.005-1.025) Urine Protein (Neg-Trace) mg/dL Urine Glucose (UA) (Negative) mg/dL Urine Ketones (Negative) mg/dL Urine Blood (Negative) Urine Nitrite (Negative) Ur Leukocyte Esterase (Negative) Urine Test (NEGATIVE) Urine Opiates Screen (Not Detect) Ur Buprenorphine Scrn (Not Detect) ng/mL Ur Oxycodone Screen (Not Detect) ng/mL Urine Methadone Screen (Not Detect) ng/mL Urine Fentanyl Screen (Not Detect) Ur Barbiturates Screen (Not Detect) Ur Phencyclidine Scrn (Not Detect) Ur Amphetamines Screen (Not Detect) U Benzodiazepines Scrn (Not Detect) Urine Cocaine Screen (Not Detect) U Marijuana (THC) Screen (Not Detect) Ethyl Alcohol mg/dL Discharge Plan Discharge Clinical Impression: Acne, OCD (obsessive compulsive disorder) Patient Disposition: Home, Self-Care Instructions: Obsessive Compulsive Disorder (DC) Additional Instructions: Take doxycycline twice daily for 1 week to help with the acne Follow the instructions of the care team. Return for new or worsening symptoms Prescriptions: New doxycycline hyclate 100 mg tablet 100 mg PO BID Qty: 14 0RF No Action fluoxetine 40 mg capsule 40 mg PO DAILY insulin glargine [Lantus U-100 Insulin] 100 unit/mL Solution 15 unit SUBCUT BEDTIME Print Language: Kyrgyz
[2023-09-25 19:12] LABS: MANUAL DIFF FLAG NO
[2023-09-25 19:13] LABS: Basophils Percent Auto 0.6 % (0-2); Eosinophils Percent Auto 0.6 % (0-4); Hematocrit 37.1 % (37.0-47.0); Hemoglobin 12.8 g/dl (12.0-16.0); Imm Gran Abs Auto 0.01 X10*3/uL (0.00-0.03); Imm Gran Pct Auto 0.2 % (0.0-0.4); Lymphocytes Absolute Auto 1.3 X10*3/uL (1.2-4.9); Lymphocytes Percent Auto 23.8 % (20-40); Mean Corpuscular HGB Conc 34.5 g/dl (31.0-35.0); Mean Corpuscular Hemoglobin 31.4 pg (27.0-33.0); Mean Corpuscular Volume 91.2 fL (80.0-98.0); Mean Platelet Volume 9.1 fL (9.4-12.3); Monocytes Absolute Auto 0.3 X10*3/uL (0.1-1.2); Monocytes Percent Auto 5.2 % (2-11); Neutrophils Absolute Auto 3.8 x10*3/uL (2.0-8.3); Neutrophils Percent Auto 69.6 % (45-73); Platelet Count 262 X10*3/uL (160-400); Red Blood Count 4.07 X10*6/uL (4.20-5.50); Red Cell Distribution Width 11.6 % (11.0-16.0); White Blood Count 5.4 X10*3/uL (4.8-10.8)
[2023-09-25 19:14] LABS: Appearance Urine Clear; Color Urine Yellow; Glucose Urine UA Negative (Negative); Leukocyte Esterase Urine Negative (Negative); Nitrite Urine Negative (Negative); Urine Blood Negative (Negative); Urine Ketones 15 mg/dL (Negative); Urine Protein Negative (Neg-Trace)
[2023-09-25 19:15] LABS: UPreg QC Valid YES; Urine Pregnancy NEGATIVE (NEGATIVE)
[2023-09-25 19:23] LABS: Amphetamine Screen Urine Not Detected (Not Detect); Barbiturates, Urine Not Detected (Not Detect); Benzodiazepines Screen Urine Not Detected (Not Detect); Buprenorphine Scr Not Detected (Not Detect); Cannabinoid Screen Urine Not Detected (Not Detect); Cocaine Screen Urine Not Detected (Not Detect); Fentanyl, urine Not Detected (Not Detect); Methadone Screen, Urine Not Detected (Not Detect); Opiate Screen Urine Not Detected (Not Detect); Oxycodone Screen Urine Not Detected (Not Detect); Phencyclidine Screen Urine Not Detected (Not Detect)
[2023-09-25 19:32] LABS: Alanine Aminotransferase 11 U/L (0-31); Albumin Level 4.5 g/dL (3.5-5.0); Alkaline Phosphatase 51 U/L (39-117); Anion Gap 12 (12-20); Aspartate Amino Transferase 14 U/L (5-31); Bilirubin Total 0.3 mg/dL (0.0-1.0); Blood Urea Nitrogen 13 mg/dL (9-16); Calcium 9.4 mg/dL (8.4-10.2); Carbon Dioxide 28 mmol/L (22-29); Chloride 103 mmol/L (96-108); Creatinine Clr Calc Pharmacy 88.5; Estimated Glomerular Filt Rate > 60; Ethanol < 10 mg/dL; Glucose Random 137 mg/dL (60-115); Potassium 3.7 mmol/L (3.3-5.1); Sodium 139 mmol/L (135-145); Total Protein 7.4 g/dL (6.5-8.0)
[2023-09-25] MEDS: Fluconazole 150 MG TABLET PO (19:49)
[2023-09-25] MEDS: Doxycycline Monohydrate 100 MG CAPSULE PO (19:49)
--- NOTE | 2023-09-25 19:49 | MHC.EDTECH ---
patient requested to check blood sugar
[2023-09-25 21:25] LABS: Glucose, Whole Blood 187 mg/dL (60-115)
[2023-09-25 21:25] LABS: Glucose, Whole Blood 157 mg/dL (60-115)
[2023-09-25] MEDS: Insulin Glargine,Hum.rec.anlog 100 UNIT/ML 10 ML VIAL 15 UNIT SUBCUT (21:57)
--- NOTE | 2023-09-25 21:57 | HE.PHANOTE ---
RE: insulin lispro [facility] called to report that the patient states she is allergic to lispro and can only use Humalog. Pt had vial on her person however reported that it had been out of the refrigerator for about a month so cannot be used. Provider aware. Pt reports being ok to take insulin glargine per Kong.
[2023-09-25 22:45] LABS: Glucose, Whole Blood 207 mg/dL (60-115)
--- NOTE | 2023-09-25 23:27 | MHC.CARE ---
Pt is requesting to go home at this time. She is not on a section 12. CARE Team met with her for a second time and so did ED provider MATTY Lee. Pt explained to both that she wanted to leave and will follow up with her [facility] in [place] as she resides in [place]. Pt was A&O x4, wearing hospital attire, and was well groomed with multiple bridges on her face where she picks her skin. Pt appears her stated age and is of a small height/weight. Pt was fully engaged with the conversation, making good eye contact, and her speech was WNL. Pt is in a sullen mood and her affect was congruent with her mood. Pt's memory and concentration are in tact. Pt is denying any SI/HI/AVH with no plan or intent. Pt is able to contract for safety. Pt's insight, judgment, and impulse control are all good at this time. Pt was in agreement to a safety plan and she went home with a copy of it. Pt is still declining PHP but stated that she will go to her local [facility] in the morning for a therapist and a medication provider.
[2023-09-25 23:31] VITALS: BP 119/70; PULSE 97; RESP 16; TEMP 36.4; O2SAT 98
== END 2023-09-25 23:46 | disposition home or self-care (01) ==
PROVIDERS: Nurse Practitioner Family; Emergency Provider Internal Medicine; PCP Nurse Practitioner Family
DX: L70.9 Acne, unspecified (principal); F42.9 Obsessive-compulsive disorder, unspecified; E10.9 Type 1 diabetes mellitus without complications
CPT/HCPCS: 36415; 80053; 80307; 81003; 81025; 82947; 85025; 99283; S9485